=== PATIENT | female | born 1950 | race Caucasian/White ===

== ENCOUNTER 2019-03-13 13:03 | Inpatient (IN) | payer MEDICARE, MEDICAID ==
[~2019-03-13] VITALS: Ht 154.9 cm; Wt 51.3 kg
[2019-03-13] MEDS ORDERED: ALBUTEROL/IPRATROPIUM 2.5MG/0.5MG, 3 ML ONE ×2 (13:23)
[2019-03-13] MEDS ORDERED: ALBUTEROL/IPRATROPIUM 2.5MG/0.5MG, 3 ML NPPB SCH (13:30)
[2019-03-13] MEDS ORDERED: SODIUM CHLORIDE FLUSH 10ML SYR IVF ONE (13:30)
[2019-03-13] MEDS ORDERED: PLEASE ENTER ALLERGIES MC SCH (13:30)
[2019-03-13] MEDS ORDERED: methylPREDNISolone SOD SUCC 125 MG/2 ML IV ONE (13:30)
[2019-03-13] MEDS ORDERED: methylPREDNISolone SOD SUCC 125 MG/2 ML ONE (13:52)
[2019-03-13 14:11] LABS: INTERNATIONAL NORMALIZED RATIO 1.02 (0.93-1.1); MEAN CORPUSCULAR HEMOGLOBIN 31.1 pg (27.0-34.8); MEAN CORPUSCULAR HGB CONC 32.8 g/dL (32.4-35.8); MEAN CORPUSCULAR VOLUME 94.9 fL (80-100); MEAN PLATELET VOLUME 8.4 fL (7.4-10.4); PLATELET COUNT 385 x10^3/uL (130-400); PROTHROMBIN TIME 10.7 Seconds (9.6-11.5); RED BLOOD COUNT 3.94 x10^6/uL (3.82-5.3); RED CELL DISTRIBUTION WIDTH 14.6 % (9.6-15.2)
[2019-03-13] MEDS ORDERED: ONDANSETRON 2MG/ML, 2ML ONE (14:14)
[2019-03-13] MEDS ORDERED: MORPHINE SULFATE 4 MG/ML, 1ML ONE ×2 (14:14→15:21)
[2019-03-13 14:16] LABS: ALBUMIN 2.9 g/dL (3.4-5.0); ANION GAP 11 mmol/L (5-15); CALCIUM 9.1 mg/dL (8.5-10.1); CHLORIDE 99 mmol/L (98-107)
[2019-03-13] MEDS: MORPHINE SULFATE 4 MG/ML, 1ML IVPush PRN ×2 (14:19→15:31)
[2019-03-13] MEDS ORDERED: CEFTRIAXONE PMX 1GM/50ML 50 ML ONE (14:22)
[2019-03-13 14:23] LABS: ALANINE AMINOTRANSFERASE 38 U/L (12-78); ALKALINE PHOSPHATASE 323 U/L (45-117); BILIRUBIN,TOTAL 0.5 mg/dL (0.2-1.0); CREATININE 0.49 mg/dL (0.55-1.02); TOTAL PROTEIN 7.8 g/dL (6.4-8.2); TROPONIN I < 0.015 ng/mL (0.000-0.045)
[2019-03-13] MEDS ORDERED: CEFTRIAXONE PMX 1GM/50ML 50 ML IVPB ONE (14:30)
[2019-03-13] MEDS ORDERED: AZITHROMYCIN 500 MG in SODIUM CHLORIDE 0.9% 250 ML IVPB ONE (14:30)
[2019-03-13] MEDS ORDERED: ONDANSETRON 2MG/ML, 2ML IVPush ONE (14:30)
--- NOTE | 2019-03-13 14:32 | NUR ---
PT MOVED TO [place] ON THE OF THIS MONTH FROM [facility]. NOW HOMELESS. C/O PRODUCTIVE COUGH, RADIATING MID BACK PAIN, AND SHORTNESS OF BREATH. IV STARTED IN LAC, CULTURES AND LABS DRAWN. ATTACHED TO MONITORS. PT DENIES ANY NEEDS OR CONCERNS AT THIS TIME. CALL LIGHT IN REACH.
[2019-03-13 14:45] LABS: MD YES
[2019-03-13 14:46] LABS: BAND#(MANUAL) 1.71 x10^3/uL; BANDS%(MANUAL) 9 % (0-7); LYMPH#(MANUAL) 0.57 x10^3/uL (1-3.4); LYMPHS% (MANUAL) 3 % (22-44); MONOS#(MANUAL) 0.95 x10^3/uL (0.3-2.7); MONOS% (MANUAL) 5 % (2-9); SEG#(MANUAL) 15.77 x10^3/uL (1.8-6.8); SEGS% (MANUAL) 83 % (42-75)
[2019-03-13 14:47] LABS: <RBC MORPHOLOGY> NORMAL
[2019-03-13 14:48] LABS: <PLATELET ESTIMATE> ADEQUATE; <PLT MORPHOLOGY> NORMAL PLT MORPH; TOXIC GRAN 1+
[2019-03-13] MEDS ORDERED: SODIUM CHLORIDE FLUSH 10ML SYR IVF PRN (15:30)
--- NOTE | 2019-03-13 15:34 | NUR ---
PATIENT MEDICATED WITH 2MG OF MORPHINE. STATES PAIN IS 7/10 COMING FROM HER RIGHT LOWER BACK.
--- NOTE | 2019-03-13 15:41 | NUR ---
IV ROCEPHIN COMPLETE. IV AZITHROMYCIN STARTED. DR. MURCIA AT BEDSIDE.
[2019-03-13] MEDS ORDERED: BUTALB/APAP/CAFFEINE 50MG/325MG/40MG PO PRN (16:00)
[2019-03-13] MEDS: NICOTINE 14MG/24 HR PATCH.TD24 TD SCH (16:00)
[2019-03-13] MEDS ORDERED: BACLOFEN 10 MG TABLET PO PRN (16:00)
[2019-03-13] MEDS: HEPARIN 5,000 UNITS/ML, 1ML SQ SCH (16:00)
[2019-03-13] MEDS ORDERED: AZITHROMYCIN 500 MG in SODIUM CHLORIDE 0.9% 250 ML IV SCH (16:00)
[2019-03-13] MEDS ORDERED: ONDANSETRON 2MG/ML, 2ML IVPush PRN (16:00)
[2019-03-13] MEDS: CEFTRIAXONE PMX 1GM/50ML 50 ML IV SCH (16:08)
--- NOTE | 2019-03-13 16:09 | NUR ---
[facility] TELEPHONE HAND-OFF REPORT GIVEN TO MICHAELA COLLIER. PT READY TO GO TO HOSPITAL ROOM.
[2019-03-13 16:41] LABS: LDL/HDL RATIO 11.6 (0.5-3.0)
[2019-03-13 16:47] LABS: FREE T4 (FREE THYROXINE) 1.45 ng/dL (0.76-1.46)
[2019-03-13 17:48] LABS: RAPID INFLUENZA A Negative (Negative); RAPID INFLUENZA B Negative (Negative)
[2019-03-13 18:51] VITALS: BP 95/60
[2019-03-13 18:56] LABS: MICROSCOPIC NOT IND
[2019-03-13 19:00] LABS: CULTURE INDICATED? NO
[2019-03-13 19:10] LABS: CREATININE,URINE RANDOM 63.1 mg/dL
[2019-03-13] MEDS: GUAIFENESIN/DM 200-20MG, 10ML UDC PO PRN (19:29)
[2019-03-13] MEDS: ALBUTEROL/IPRATROPIUM 2.5MG/0.5MG, 3 ML HHN SCH (22:00)
[2019-03-14 01:03] VITALS: BP 112/69
[2019-03-14] MEDS: ALBUTEROL/IPRATROPIUM 2.5MG/0.5MG, 3 ML HHN SCH ×4 (02:31→20:03)
[2019-03-14] MEDS: HEPARIN 5,000 UNITS/ML, 1ML SQ SCH ×2 (04:00→16:00)
[2019-03-14] MEDS: HYDROcodone/APAP 5/325 TABLET PO PRN ×2 (04:31→14:47)
[2019-03-14 04:52] LABS: BASOPHILS # (AUTO) 0.02 x10^3/uL (0-0.1); BASOPHILS % (AUTO) 0 % (0-1); EOSINOPHILS % (AUTO) 0 % (1-7); LYMPHOCYTES # (AUTO) 0.91 x10^3/uL (1-3.4); LYMPHOCYTES % (AUTO) 9 % (22-44); MD NO; MEAN CORPUSCULAR HEMOGLOBIN 31.6 pg (27.0-34.8); MEAN CORPUSCULAR HGB CONC 32.8 g/dL (32.4-35.8); MEAN CORPUSCULAR VOLUME 96.1 fL (80-100); MEAN PLATELET VOLUME 8.4 fL (7.4-10.4); MONOCYTES # (AUTO) 0.23 x10^3/uL (0.2-0.8); MONOCYTES % (AUTO) 2 % (2-9); NEUTROPHILS # (AUTO) 9.19 x10^3/uL (1.8-6.8); NEUTROPHILS % (AUTO) 89 % (42-75); PLATELET COUNT 337 x10^3/uL (130-400); RED BLOOD COUNT 3.38 x10^6/uL (3.82-5.3); RED CELL DISTRIBUTION WIDTH 14.4 % (9.6-15.2)
[2019-03-14 04:53] LABS: ANION GAP 7 mmol/L (5-15); CALCIUM 8.1 mg/dL (8.5-10.1); CHLORIDE 101 mmol/L (98-107)
[2019-03-14 04:54] LABS: CREATININE 0.58 mg/dL (0.55-1.02)
[2019-03-14] MEDS: ASPIRIN 81 MG TABLET EC PO SCH (05:20)
[2019-03-14 06:50] VITALS: BP 103/65
[2019-03-14] MEDS: GUAIFENESIN/DM 200-20MG, 10ML UDC PO PRN (08:45)
[2019-03-14] MEDS: KETOROLAC 30 MG/1 ML IVPush PRN (08:45)
[2019-03-14 12:25] VITALS: BP 96/55
[2019-03-14] MEDS: NICOTINE 14MG/24 HR PATCH.TD24 TD SCH (16:00)
[2019-03-14] MEDS: CEFTRIAXONE PMX 1GM/50ML 50 ML IV SCH (16:38)
[2019-03-14 19:18] VITALS: BP 129/71
[2019-03-14] MEDS: ENOXAPARIN 40 MG/0.4 ML SQ SCH (20:00)
[2019-03-14] MEDS: DOXYCYCLINE 100 MG in DEXTROSE 5% 250 ML IV SCH (20:29)
[2019-03-14] MEDS ORDERED: CALCIUM CARBONATE 500 MG TAB.CHEW PO ONE (22:30)
[2019-03-14] MEDS: ACETAMINOPHEN 325 MG TABLET PO PRN (22:44)
[2019-03-15 01:04] VITALS: BP 103/56
[2019-03-15] MEDS: ALBUTEROL/IPRATROPIUM 2.5MG/0.5MG, 3 ML HHN SCH ×4 (02:00→20:47)
[2019-03-15 04:55] LABS: MEAN CORPUSCULAR HEMOGLOBIN 31.6 pg (27.0-34.8); MEAN CORPUSCULAR HGB CONC 33.1 g/dL (32.4-35.8); MEAN CORPUSCULAR VOLUME 95.6 fL (80-100); MEAN PLATELET VOLUME 8.4 fL (7.4-10.4); PLATELET COUNT 389 x10^3/uL (130-400); RED BLOOD COUNT 3.26 x10^6/uL (3.82-5.3); RED CELL DISTRIBUTION WIDTH 14.7 % (9.6-15.2)
[2019-03-15 04:57] LABS: ALANINE AMINOTRANSFERASE 43 U/L (12-78); ALBUMIN 2.1 g/dL (3.4-5.0); ANION GAP 5 mmol/L (5-15); CALCIUM 8.3 mg/dL (8.5-10.1); CHLORIDE 98 mmol/L (98-107); CREATININE 0.41 mg/dL (0.55-1.02)
[2019-03-15 04:59] LABS: ALKALINE PHOSPHATASE 203 U/L (45-117); BILIRUBIN,TOTAL 0.3 mg/dL (0.2-1.0); TOTAL PROTEIN 5.9 g/dL (6.4-8.2)
[2019-03-15] MEDS: ASPIRIN 81 MG TABLET EC PO SCH (05:17)
[2019-03-15] MEDS: HYDROcodone/APAP 5/325 TABLET PO PRN ×2 (05:19→16:41)
[2019-03-15 05:47] LABS: BASOPHILS % (AUTO) 2 % (0-1); EOSINOPHILS # (AUTO) 0.05 x10^3/uL (0-0.4); EOSINOPHILS % (AUTO) 1 % (1-7); LYMPHOCYTES % (AUTO) 15 % (22-44); MD SCAN; MONOCYTES # (AUTO) 0.29 x10^3/uL (0.2-0.8); MONOCYTES % (AUTO) 3 % (2-9); NEUTROPHILS # (AUTO) 7.12 x10^3/uL (1.8-6.8); NEUTROPHILS % (AUTO) 79 % (42-75)
[2019-03-15 07:00] VITALS: BP 116/71
[2019-03-15] MEDS: DOXYCYCLINE 100 MG in DEXTROSE 5% 250 ML IV SCH ×2 (08:11→20:04)
[2019-03-15] MEDS: KETOROLAC 30 MG/1 ML IVPush PRN (10:08)
[2019-03-15 12:58] VITALS: BP 122/73
[2019-03-15] MEDS: ACETAMINOPHEN 325 MG TABLET PO PRN (13:47)
[2019-03-15] MEDS: NICOTINE 14MG/24 HR PATCH.TD24 TD SCH (16:00)
[2019-03-15] MEDS: CEFTRIAXONE PMX 1GM/50ML 50 ML IV SCH (16:15)
[2019-03-15 19:36] VITALS: BP 137/80
[2019-03-15] MEDS: ENOXAPARIN 40 MG/0.4 ML SQ SCH (20:00)
[2019-03-15] MEDS: GUAIFENESIN/DM 200-20MG, 10ML UDC PO PRN (23:08)
[2019-03-16 01:00] VITALS: BP 144/75
[2019-03-16] MEDS: KETOROLAC 30 MG/1 ML IVPush PRN ×3 (01:17→19:51)
[2019-03-16] MEDS: ALBUTEROL/IPRATROPIUM 2.5MG/0.5MG, 3 ML HHN SCH ×4 (02:50→20:28)
[2019-03-16] MEDS: HYDROcodone/APAP 5/325 TABLET PO PRN ×2 (04:02→17:08)
[2019-03-16] MEDS: ASPIRIN 81 MG TABLET EC PO SCH (05:25)
[2019-03-16 07:55] VITALS: BP 122/78
[2019-03-16] MEDS: DOXYCYCLINE 100 MG in DEXTROSE 5% 250 ML IV SCH ×2 (08:16→19:51)
[2019-03-16 14:00] VITALS: BP 113/68
[2019-03-16] MEDS ORDERED: ALBUTEROL/IPRATROPIUM 2.5MG/0.5MG, 3 ML HHN SCH (16:00)
[2019-03-16] MEDS: NICOTINE 14MG/24 HR PATCH.TD24 TD SCH (16:00)
[2019-03-16] MEDS: SODIUM CHLORIDE NASAL SPRAY 45ML BOTTLE NAS PRN (16:26)
[2019-03-16] MEDS: CEFTRIAXONE PMX 1GM/50ML 50 ML IV SCH (16:26)
[2019-03-16 18:51] VITALS: BP 145/83
[2019-03-16] MEDS: ENOXAPARIN 40 MG/0.4 ML SQ SCH (20:00)
[2019-03-17 00:36] VITALS: BP 143/74
[2019-03-17] MEDS: SODIUM CHLORIDE NASAL SPRAY 45ML BOTTLE NAS PRN ×2 (00:39→05:22)
[2019-03-17] MEDS: ACETAMINOPHEN 325 MG TABLET PO PRN (00:58)
[2019-03-17] MEDS: GUAIFENESIN/DM 200-20MG, 10ML UDC PO PRN (01:08)
[2019-03-17] MEDS: KETOROLAC 30 MG/1 ML IVPush PRN ×2 (03:12→10:26)
[2019-03-17] MEDS: HYDROcodone/APAP 5/325 TABLET PO PRN (05:22)
[2019-03-17] MEDS: ASPIRIN 81 MG TABLET EC PO SCH (05:22)
[2019-03-17 07:00] VITALS: BP 131/76
[2019-03-17] MEDS: ALBUTEROL/IPRATROPIUM 2.5MG/0.5MG, 3 ML HHN SCH (07:25)
[2019-03-17] MEDS: DOXYCYCLINE 100 MG in DEXTROSE 5% 250 ML IV SCH ×2 (07:43→07:44)
[2019-03-17] MEDS ORDERED: SIMVASTATIN 20 MG TABLET PO SCH (21:00)
== END 2019-03-17 10:49 | disposition left against medical advice (07) | DRG 871 ==
LOC: ED 14:47 → EDIP 15:19 → 3N 16:25
PROVIDERS: ADMIT Internal Medicine; ATTEND Internal Medicine
DX: A41.9 Sepsis, unspecified organism (principal); J15.9 Unspecified bacterial pneumonia; J96.01 Acute respiratory failure with hypoxia; J44.0 Chronic obstructive pulmonary disease with (acute) lower respiratory infection; J44.1 Chronic obstructive pulmonary disease with (acute) exacerbation; E87.1 Hypo-osmolality and hyponatremia; I69.354 Hemiplegia and hemiparesis following cerebral infarction affecting left non-dominant side; F17.200 Nicotine dependence, unspecified, uncomplicated; Z53.29 Procedure and treatment not carried out because of patient's decision for other reasons; D63.8 Anemia in other chronic diseases classified elsewhere; E78.5 Hyperlipidemia, unspecified; I50.9 Heart failure, unspecified; Z59.0 Homelessness; Z85.828 Personal history of other malignant neoplasm of skin
CPT/HCPCS: 36415; 71045; 76770; 80048; 80053; 80061; 81003; 82436; 82570; 83605; 83735; 83880; 84100; 84133; 84300; 84439; 84443; 84484; 85025; 85610; 85730; 87040; 87070; 87205; 87400; 93005; 94640; G0378; J0456; J0696; J1885; J2405; J7060; J7620; J2270; J2930; J7050; J7512